=== PATIENT | female | born 1970 | race Caucasian/White ===

== ENCOUNTER 2021-11-13 08:58 | Outpatient (CLI) | payer OTHER, SELFPAY ==
--- NOTE | 2021-11-13 09:15 | CRLHL7_ITS ---
For Patients: As a result of the Century Cures Act, medical imaging exams and procedure reports are released immediately into your electronic medical record. You may view this report before your referring provider. If you have questions, please contact your health care provider. BILATERAL SCREENING MAMMOGRAM WITH COMPUTER-AIDED DETECTION TECHNIQUE: CC and MLO views were obtained. These mammographic images have been obtained using full-field digital technique. These mammographic images were interpreted with the benefit of computer-aided detection. COMPARISON FILM: 11/23/12. FINDINGS: There are scattered areas of fibroglandular density IMPRESSION: There is no radiographic evidence for malignancy. ASSESSMENT: BI-RADS Category 1: Negative RECOMMENDATION: Routine screening mammogram in 1 year. A lay language report of this examination will be provided to the patient. Adelfo Salgado M.D. Diagnostic/Musculoskeletal Radiologist [email or web address] LAURA/Dictated by: Adelfo Salgado MD @ 11/13/2021 11:08:00 AM (Electronically Signed)
== END 2021-11-13 08:59 | disposition home or self-care (01) ==
LOC: MAMMO 09:00
PROVIDERS: PCP Family Medicine; Visit Provider Family Medicine
DX: Z12.31 Encounter for screening mammogram for malignant neoplasm of breast (principal)
CPT/HCPCS: 77063; 77067

== ENCOUNTER 2023-12-15 10:37 | Outpatient (CLI) | payer OTHER, SELFPAY ==
--- NOTE | 2023-12-15 10:45 | CRLHL7_ITS ---
For Patients: As a result of the Cures Act, medical imaging exams and procedure reports are released immediately into your electronic medical record. You may view this report before your referring provider. If you have questions, please contact your health care provider. BILATERAL DIAGNOSTIC MAMMOGRAM WITH COMPUTER-AIDED DETECTION AND TOMOSYNTHESIS LEFT BREAST ULTRASOUND CLINICAL HISTORY: LEFT breast lump. COMPARISON: 11/13/2021, 11/23/2012. TECHNIQUE: Digital BILATERAL mammogram in four projections with computer-aided detection. Tomosynthesis was used in this interpretation. Real-time ultrasound imaging of LEFT breast with imaging documentation. BREAST COMPOSITION: The breasts are heterogeneously dense, which may obscure small masses. FINDINGS: 3D CC/MLO BILATERAL mammogram images submitted. No suspicious mass or architectural distortion. No suspicious calcifications or adenopathy. Targeted LEFT breast ultrasound performed in the area of concern at 2 o`clock 1 cm from the nipple. Mild benign multi-duct ectasia noted. No fluid collection or mass. No suspicious findings. IMPRESSION: No evidence of malignancy or breast abscess. RECOMMENDATIONS: Clinical follow-up. Routine annual screening mammography. BI-RADS Category 2: Benign Results and recommendations discussed with the patient. A lay language report of this examination will be provided to the patient. Dictated by Gunner Faith MD @ 12/15/2023 12:41:33 PM SP/Dictated by: Gunner Faith MD @ 12/15/2023 12:41:00 PM (Electronically Signed)
--- NOTE | 2023-12-15 11:15 | CRLHL7_ITS ---
For Patients: As a result of the Century Cures Act, medical imaging exams and procedure reports are released immediately into your electronic medical record. You may view this report before your referring provider. If you have questions, please contact your health care provider. PLEASE SEE BILATERAL BREAST DIAGNOSTIC MAMMOGRAM PERFORMED SAME DAY. CRL:sp SP/Dictated by: Gunner Faith MD @ 12/15/2023 1:11:00 PM (Electronically Signed)
== END 2023-12-15 10:38 | disposition home or self-care (01) ==
LOC: MAMMO 10:39
PROVIDERS: Visit Provider Nurse Practitioner Adult Health
DX: N63.20 Unspecified lump in the left breast, unspecified quadrant (principal)
CPT/HCPCS: 76642; 77066; G0279